=== PATIENT | male | born 1995 | race African-American/Black ===

== ENCOUNTER 2019-12-24 12:09 | Emergency (ER) | payer OTHER ==
[~2019-12-24] VITALS: Ht 177.8 cm; Wt 71.2 kg
[2019-12-24 12:20] VITALS: BP 123/50
[2019-12-24] MEDS ORDERED: predniSONE 20 MG TABLET PO ONE (13:15)
[2019-12-24] MEDS ORDERED: PRED20TA PO (13:19)
--- NOTE | 2019-12-24 13:20 | PHYS DOC ---
Past Medical History Past Medical History: No Pertinent History Past Surgical History: No Surgical History Smoking Status: Never Smoker Alcohol Use: None Social History Narrative: Marijuana use in [facility] General Adult EDM: Chief Complaint: ABDOMINAL PAIN HPI: HPI: Patient is a 24-year-old otherwise healthy male who presents with some painful swelling in his right inguinal region. He is concerned that it may be a hernia. He denies any fever chills or sweats. He denies any testicular pain he denies any dysuria or urethral discharge. He has shaved in the genital region. [] Review of Systems: Review of Systems: Constitutional: Denies fever or chills. [] Eyes: Denies change in visual acuity. [] HENT: Denies nasal congestion or sore throat. [] Respiratory: Denies cough or shortness of breath. [] Cardiovascular: Denies chest pain or edema. [] GI: Denies abdominal pain, nausea, vomiting, bloody stools or diarrhea. [] : D Per HPI [] Musculoskeletal: Denies back pain or joint pain. [] Integument: Per HPI [] Neurologic: Denies headache, focal weakness or sensory changes. [] Endocrine: Denies polyuria or polydipsia. [] Lymphatic: Denies swollen glands. [] Psychiatric: Denies depression or anxiety. [] Heart Score: Risk Factors: Risk Factors: DM, Current or recent (<one month) smoker, HTN, HLP, family history of CAD, obesity. Risk Scores: Score 0 - 3: 2.5% MACE over next 6 weeks - Discharge Home Score 4 - 6: 20.3% MACE over next 6 weeks - Admit for Clinical Observation Score 7 - 10: 72.7% MACE over next 6 weeks - Early Invasive Strategies Allergies: Allergies: Allergies Coded Allergies Type Severity Reaction Last Updated Verified No Known Drug Allergies 12/24/19 No Physical Exam: PE: Constitutional: Well developed, well nourished, mild distress, non-toxic appearance. [] HENT: Normocephalic, atraumatic, bilateral external ears normal, oropharynx moist, no oral exudates, nose normal. [] Eyes: PERRLA, EOMI, conjunctiva normal, no discharge. [] Neck: Normal range of motion, no tenderness, supple, no stridor. [] Cardiovascular:Heart rate regular rhythm, no murmur [] Lungs & Thorax: Bilateral breath sounds clear to auscultation [] Abdomen: Bowel sounds normal, soft, no tenderness, no masses, no pulsatile masses. [] Skin: He has some markedly swollen right inguinal lymph nodes no evidence of abscess : There is no evidence of inguinal hernia no testicular pain or obvious urethral discharge [] Back: No tenderness, no CVA tenderness. [] Extremities: No tenderness, no cyanosis, no clubbing, ROM intact, no edema. [] Neurologic: Alert and oriented X 3, normal motor function, normal sensory function, no focal deficits noted. [] Psychologic: Affect normal, judgement normal, mood normal. [] Current Patient Data: Vital Signs: Vital Signs Date Time Temp Pulse Resp B/P (MAP) Pulse Ox O2 Delivery O2 Flow Rate FiO2 12/24/19 12:20 98.3 61 20 123/50 (74) 99 Room Air 98.3 EKG: EKG: [] Radiology/Procedures: Radiology/Procedures: [] Course & Med Decision Making: Course & Med Decision Making Pertinent Labs and Imaging studies reviewed. (See chart for details) [] Dragon Disclaimer: Dragon Disclaimer: This electronic medical record was generated, in whole or in part, using a voice recognition dictation system. Departure Departure Impression: Primary Impression: Acute inguinal lymphadenitis Disposition: 01 HOME, SELF-CARE Condition: STABLE Referrals: NO PCP (PCP) Patient Instructions: Lymphangitis, Pediatric Scripts Prednisone (PREDNISONE) 20 Mg Tablet 3 TAB PO DAILY PRN for COUGH for 5 Days, #15 TAB Prov: ANTON WALDEN DO 12/24/19 ANTON WALDEN DO December 24, 2019 13:20
== END 2019-12-24 13:50 | disposition home or self-care (01) ==
LOC: ER 12:09
DX: L04.1 Acute lymphadenitis of trunk (principal)
CPT/HCPCS: 99283; J7512

== ENCOUNTER 2021-04-25 09:00 | Emergency (ER) | payer MEDICAID, OTHER ==
[~2021-04-25] VITALS: Ht 177.8 cm; Wt 72.0 kg
[~2021-04-25 09:00] MED LIST: PRED20TA PO
[2021-04-25 09:47] VITALS: BP 131/91
[2021-04-25] MEDS ORDERED: DEXAMETHASONE 4 MG TABLET PO ONE (10:30)
[2021-04-25] MEDS ORDERED: KETOROLAC 30 MG/ML VIAL. IM ONE (10:30)
[2021-04-25] MEDS ORDERED: ORPH100T PO (10:36)
[2021-04-25] MEDS ORDERED: PRED20TA PO (10:36)
--- NOTE | 2021-04-25 10:36 | PHYS DOC ---
Past Medical History Past Medical History: No Pertinent History Past Surgical History: Other Additional Past Surgical Histo: RIGHT LEG SX Smoking Status: Current Every Day Smoker Alcohol Use: Occasionally Drug Use: Marijuana General Adult EDM: Chief Complaint: RIB PAIN HPI: HPI: 25 year old male presents with 3 day history of bilateral lumbar pain and inability to stand straight without pain. Reports no known injury or accident that he can recall in which injury occurred. Denies rash. Denies chest pain or cough. Denies numbness or tingling. Denies fever/chills. Review of Systems: Review of Systems: Constitutional: Denies fever or chills Eyes: Denies change in visual acuity, redness, or eye pain HENT: Denies nasal congestion or sore throat Respiratory: Denies cough or shortness of breath Cardiovascular: Denies chest pain or palpitations GI: Denies abdominal pain, nausea, vomiting, or diarrhea : Denies dysuria or hematuria Musculoskeletal: Reports back pain; denies joint pain Integument: Denies rash or skin lesions Neurologic: Denies headache, focal weakness or sensory changes Complete systems were reviewed and found to be within normal limits, except as documented in this note. Heart Score: C/O Chest Pain: N/A Current Medications: Current Medications Medications (Trade) Dose Ordered Sig/Peña Start Time Stop Time Status Last Admin Dose Admin Dexamethasone (Decadron) 10 mg 1X ONCE 04/25/21 10:30 04/25/21 10:31 UNV Ketorolac Tromethamine (Toradol 30mg Vial) 30 mg 1X ONCE 04/25/21 10:30 04/25/21 10:31 UNV Allergies: Allergies: Allergies Coded Allergies Type Severity Reaction Last Updated Verified No Known Drug Allergies 12/24/19 No Physical Exam: PE: Constitutional: Well developed, well nourished, no acute distress, non-toxic appearance HENT: Normocephalic, atraumatic Eyes: Conjunctiva normal, no discharge Neck: Normal range of motion, supple Lungs & Thorax: Equal chest rise and fall, no respiratory distress, no chest wall pain Abdomen: Soft, no tenderness Skin: Warm, dry, no erythema, no rash Back: No midline tenderness, bilateral lumbar paraspinal tenderness, no CVA tenderness Extremities: No tenderness, ROM intact, no edema Neurologic: Alert and oriented X 3, no focal deficits noted Psychologic: Affect normal, judgement normal Current Patient Data: Vital Signs: Vital Signs Date Time Temp Pulse Resp B/P (MAP) Pulse Ox O2 Delivery O2 Flow Rate FiO2 04/25/21 09:47 97.9 50 16 131/91 (74) 100 Room Air 97.9 EKG: EKG: [] Radiology/Procedures: Radiology/Procedures: [] Course & Med Decision Making: Course & Med Decision Making Patient presents with HPI and physical exam consistent for atraumatic musculoskeletal back pain. No known injury. No midline spinal tenderness. Symptomatic treatment provided. Patient stable for discharge home with outpatient follow-up with PCP/Pain management. Pain management referral provided. Discussed findings and plan with patient, who acknowledges understanding and agreement. [employer] Disclaimer: [employer] Disclaimer: This electronic medical record was generated, in whole or in part, using a voice recognition dictation system. Departure Departure Impression: Primary Impression: Back pain Qualified Codes: M54.5 - Low back pain Disposition: HOME / SELF CARE / HOMELESS Condition: STABLE Referrals: NO PCP (PCP) ANNIKA MULLIGAN MD Patient Instructions: Back Pain, Adult, [id number], Muscle Strain, [id number] Additional Instructions: ICE area of discomfort 20 min on then leave off next 20 mins. Repeat several times daily as needed for next few days. May also introduce heat. See which feels better for you. Take over the counter Ibuprofen and/or Tylenol as needed for pain in addition to muscle relaxers. Scripts Prednisone (PREDNISONE) 20 Mg Tablet 2 TAB PO DAILY for 4 Days, #8 TAB Start this prescription tomorrow, Thursday04/26/21 Prov: PÉREZ LARSON DO 04/25/21 Orphenadrine Citrate (ORPHENADRINE CITRATE) 100 Mg Tablet.er 100 MG PO BID PRN for MUSCLE PAIN, #14 TAB Prov: PÉREZ LARSON DO 04/25/21 PÉREZ LARSON DO Apr 25, 2021 10:36
== END 2021-04-25 10:57 | disposition home or self-care (01) ==
LOC: ER 09:00
DX: M54.5 Low back pain (principal); R07.81 Pleurodynia; F17.200 Nicotine dependence, unspecified, uncomplicated
CPT/HCPCS: 96372; 99283; J1885